=== PATIENT | male | born 1965 | race Caucasian/White ===

== ENCOUNTER 2023-04-23 08:44 | Day surgery (SDC) | payer OTHER ==
[~2023-04-23] VITALS: Ht 160 cm; Wt 81.2 kg
[2023-04-23] MEDS ORDERED: fentaNYL citrate 0.05 MG/ML VIAL ONE (10:37)
[2023-04-23] MEDS ORDERED: diphenhydrAMINE 50 MG/ML VIAL ONE (10:37)
[2023-04-23] MEDS ORDERED: LIDOCAINE 2% 100 MG/5 ML UJET TP ONE (10:38)
[2023-04-23] MEDS ORDERED: MIDAZOLAM 2 MG/2 ML VIAL ONE (10:38)
[2023-04-23] MEDS ORDERED: fentaNYL citrate 0.05 MG/ML VIAL IVP ONE (14:20)
[2023-04-23] MEDS ORDERED: MIDAZOLAM 2 MG/2 ML VIAL IVP ONE (14:20)
== END 2023-04-23 13:31 | disposition home or self-care (01) ==
LOC: MDS 08:44 → MMU 08:46 → MDS 13:31
PROVIDERS: ATTEND Internal Medicine Gastroenterology
DX: K62.5 Hemorrhage of anus and rectum (principal); K57.30 Diverticulosis of large intestine without perforation or abscess without bleeding; D12.5 Benign neoplasm of sigmoid colon; K57.92 Diverticulitis of intestine, part unspecified, without perforation or abscess without bleeding; J45.909 Unspecified asthma, uncomplicated; Z88.0 Allergy status to penicillin; Z98.0 Intestinal bypass and anastomosis status; Z79.899 Other long term (current) drug therapy
CPT/HCPCS: 45385; J2250; J3010; J1200